=== PATIENT | male | born 1935 | race Caucasian/White ===

== ENCOUNTER → 2019-11-07 | Outpatient (CLI) | payer MEDICARE ==
[~2019-11-07] MED LIST: ASPI-515 PO; ATOR10TA9 PO; SOTA80TA PO
[2019-11-07 10:27] LABS: BASOPHILS # (AUTO) 0.06 x10^3/uL (0-0.1); BASOPHILS % (AUTO) 1 % (0-1); EOSINOPHILS # (AUTO) 0.07 x10^3/uL (0-0.4); EOSINOPHILS % (AUTO) 1 % (1-7); LYMPHOCYTES # (AUTO) 1.23 x10^3/uL (1-3.4); LYMPHOCYTES % (AUTO) 11 % (22-44); MD NO; MEAN CORPUSCULAR HEMOGLOBIN 27.3 pg (27.5-34.5); MEAN CORPUSCULAR HGB CONC 32.7 g/dL (33.2-36.2); MEAN CORPUSCULAR VOLUME 83.5 fL (81-97); MEAN PLATELET VOLUME 7.8 fL (7.4-10.4); MONOCYTES # (AUTO) 0.79 x10^3/uL (0.2-0.8); MONOCYTES % (AUTO) 7 % (2-9); NEUTROPHILS # (AUTO) 9.47 x10^3/uL (1.8-6.8); NEUTROPHILS % (AUTO) 82 % (42-75); PLATELET COUNT 202 x10^3/uL (130-400); RED BLOOD COUNT 5.29 x10^6/uL (4.38-5.82); RED CELL DISTRIBUTION WIDTH 15.3 % (9.4-14.8)
[2019-11-07 10:38] LABS: ALBUMIN 3.7 g/dL (3.4-5.0); ANION GAP 7 mmol/L (5-15); CALCIUM 8.9 mg/dL (8.5-10.1); CHLORIDE 107 mmol/L (98-107)
[2019-11-07 10:41] LABS: ALANINE AMINOTRANSFERASE 54 U/L (12-78); ALKALINE PHOSPHATASE 78 U/L (45-117); CREATININE 1.65 mg/dL (0.7-1.3); TOTAL PROTEIN 7.2 g/dL (6.4-8.2)
[2019-11-07 10:46] LABS: INTERNATIONAL NORMALIZED RATIO 1.08 (0.93-1.1); PROTHROMBIN TIME 11.3 Seconds (9.6-11.5)
== END | disposition home or self-care (01) ==
LOC: CFH 09:24
PROVIDERS: ATTEND Internal Medicine Cardiovascular Disease
DX: J44.9 Chronic obstructive pulmonary disease, unspecified (principal); I51.7 Cardiomegaly; J20.9 Acute bronchitis, unspecified; E78.2 Mixed hyperlipidemia; R06.02 Shortness of breath; Z95.5 Presence of coronary angioplasty implant and graft; Z95.810 Presence of automatic (implantable) cardiac defibrillator; Z79.82 Long term (current) use of aspirin; Z79.899 Other long term (current) drug therapy
CPT/HCPCS: 36415; 71046; 80053; 85025; 85610; 85730

== ENCOUNTER 2019-11-09 09:33 | Day surgery (SDC) | payer MEDICARE ==
[~2019-11-09] VITALS: Ht 167.6 cm; Wt 90.0 kg
[2019-11-09 09:58] VITALS: BP 135/94
[2019-11-09] MEDS ORDERED: SOTA80TA PO (10:02)
[2019-11-09] MEDS ORDERED: ATOR10TA9 PO (10:02)
[2019-11-09] MEDS ORDERED: ASPI-515 PO (10:02)
[2019-11-09] MEDS ORDERED: TICAGRELOR 90 MG TABLET ONE (11:39)
[2019-11-09] MEDS ORDERED: FENTANYL PF 100 MCG/2ML ONE (11:39)
[2019-11-09] MEDS ORDERED: MIDAZOLAM 1 MG/ML, 5ML ONE (11:39)
[2019-11-09] MEDS ORDERED: LIDOCAINE 2%, 20ML ONE (11:40)
[2019-11-09] MEDS ORDERED: HEPARIN 1,000 UNITS/ML, 10ML ONE (11:40)
[2019-11-09] MEDS ORDERED: NITROGLYCERIN 5 MG/ML, 10ML ONE (11:40)
[2019-11-09] MEDS ORDERED: BIVALIRUDIN 250 MG ONE (11:40)
[2019-11-09] MEDS ORDERED: SODIUM CHLORIDE 0.9% 1,000 ML IV SCH (12:57)
[2019-11-09] MEDS ORDERED: ONDANSETRON 2MG/ML, 2ML ONE (13:02)
== END 2019-11-09 16:57 | disposition home or self-care (01) ==
LOC: CACL 09:33
PROVIDERS: ATTEND Internal Medicine Cardiovascular Disease
DX: R06.09 Other forms of dyspnea (principal); I25.110 Atherosclerotic heart disease of native coronary artery with unstable angina pectoris; I47.2 Ventricular tachycardia; I25.2 Old myocardial infarction; I10 Essential (primary) hypertension; E78.2 Mixed hyperlipidemia; Z79.82 Long term (current) use of aspirin; Z79.899 Other long term (current) drug therapy; Z87.891 Personal history of nicotine dependence; Z88.5 Allergy status to narcotic agent; Z95.810 Presence of automatic (implantable) cardiac defibrillator; Z82.49 Family history of ischemic heart disease and other diseases of the circulatory system
CPT/HCPCS: 93459; 93567; 99156; 99157; C1760; C1769; C1887; C1894; J1644; J2250; J2405; J3010; Q9967; J0583

== ENCOUNTER 2019-12-25 09:49 | Day surgery (SDC) | payer MEDICARE ==
[~2019-12-25] VITALS: Ht 167.6 cm; Wt 83.2 kg
[2019-12-25 10:22] VITALS: BP 116/61
[2019-12-25] MEDS ORDERED: DIGO125T85 PO (10:47)
[2019-12-25] MEDS ORDERED: FURO-93 PO (10:47)
[2019-12-25] MEDS ORDERED: RIVA15TA PO (10:47)
[2019-12-25] MEDS ORDERED: PROPOFOL 10 MG/ML, 20ML ONE (12:44)
== END 2019-12-25 14:11 | disposition home or self-care (01) ==
LOC: CACL 09:49
PROVIDERS: ATTEND Internal Medicine Cardiovascular Disease
DX: I48.91 Unspecified atrial fibrillation (principal); I42.9 Cardiomyopathy, unspecified; I25.10 Atherosclerotic heart disease of native coronary artery without angina pectoris; I10 Essential (primary) hypertension; E78.5 Hyperlipidemia, unspecified; I25.2 Old myocardial infarction; Z79.01 Long term (current) use of anticoagulants; Z79.899 Other long term (current) drug therapy; Z88.5 Allergy status to narcotic agent; Z95.1 Presence of aortocoronary bypass graft; Z95.810 Presence of automatic (implantable) cardiac defibrillator
CPT/HCPCS: 92960; J2704

== ENCOUNTER 2020-04-03 09:02 | Day surgery (SDC) | payer MEDICARE ==
[~2020-04-03] VITALS: Ht 167.6 cm; Wt 82.0 kg
[~2020-04-03 09:02] MED LIST changes: +DIGO125T85 PO; +FURO-93 PO; +RIVA15TA PO
[2020-04-03 10:07] LABS: BASOPHILS # (AUTO) 0.04 x10^3/uL (0-0.1); BASOPHILS % (AUTO) 0 % (0-1); EOSINOPHILS # (AUTO) 0.13 x10^3/uL (0-0.4); EOSINOPHILS % (AUTO) 1 % (1-7); LYMPHOCYTES # (AUTO) 1.14 x10^3/uL (1-3.4); LYMPHOCYTES % (AUTO) 12 % (22-44); MD NO; MEAN CORPUSCULAR HEMOGLOBIN 27.1 pg (27.5-34.5); MEAN CORPUSCULAR HGB CONC 32.3 g/dL (33.2-36.2); MEAN CORPUSCULAR VOLUME 83.9 fL (81-97); MEAN PLATELET VOLUME 8.1 fL (7.4-10.4); MONOCYTES # (AUTO) 0.83 x10^3/uL (0.2-0.8); MONOCYTES % (AUTO) 9 % (2-9); NEUTROPHILS # (AUTO) 7.55 x10^3/uL (1.8-6.8); NEUTROPHILS % (AUTO) 78 % (42-75); PLATELET COUNT 190 x10^3/uL (130-400); RED BLOOD COUNT 4.72 x10^6/uL (4.38-5.82); RED CELL DISTRIBUTION WIDTH 15.6 % (9.4-14.8)
[2020-04-03 10:33] LABS: ANION GAP 7 mmol/L (5-15); CALCIUM 9.6 mg/dL (8.5-10.1); CHLORIDE 108 mmol/L (98-107)
[2020-04-03 10:34] LABS: CREATININE 1.82 mg/dL (0.7-1.3)
[2020-04-03] MEDS ORDERED: PROPOFOL 10 MG/ML, 20ML ONE (10:55)
== END 2020-04-03 12:48 | disposition home or self-care (01) ==
LOC: CACL 09:02
PROVIDERS: ATTEND Internal Medicine Clinical Cardiac Electrophysiology
DX: I48.19 Other persistent atrial fibrillation (principal); E78.5 Hyperlipidemia, unspecified; I42.8 Other cardiomyopathies; I25.2 Old myocardial infarction; Z79.01 Long term (current) use of anticoagulants; Z79.899 Other long term (current) drug therapy; Z88.5 Allergy status to narcotic agent; Z98.890 Other specified postprocedural states
CPT/HCPCS: 36415; 80048; 85025; 92960; J2704

== ENCOUNTER → 2020-07-16 | Outpatient (CLI) | payer MEDICARE ==
[~2020-07-16] MED LIST changes: +CARV3.1212 PO; +FURO-92 PO; +IRBE150T49 PO; +POTA20TA6 PO
== END | disposition home or self-care (01) ==
LOC: STAR 08:31
PROVIDERS: ATTEND Anesthesiology
DX: Z01.812 Encounter for preprocedural laboratory examination (principal); Z20.828 Contact with and (suspected) exposure to other viral communicable diseases
CPT/HCPCS: 36415; 87635

== ENCOUNTER 2020-07-19 06:03 | Day surgery (SDC) | payer MEDICARE ==
[~2020-07-19] VITALS: Ht 167.6 cm; Wt 82.7 kg
[2020-07-19] MEDS ORDERED: SODIUM CHLORIDE 0.9% 1,000 ML IV ONE (06:30)
[2020-07-19] MEDS ORDERED: POTA20TA6 PO (06:42)
[2020-07-19] MEDS ORDERED: PROPOFOL 10 MG/ML, 20ML ONE (07:31)
== END 2020-07-19 09:23 | disposition home or self-care (01) ==
LOC: CACL 06:03
PROVIDERS: ATTEND Internal Medicine Cardiovascular Disease
DX: I08.1 Rheumatic disorders of both mitral and tricuspid valves (principal); I13.0 Hypertensive heart and chronic kidney disease with heart failure and stage 1 through stage 4 chronic kidney disease, or unspecified chronic kidney disease; N18.9 Chronic kidney disease, unspecified; I50.9 Heart failure, unspecified; I25.5 Ischemic cardiomyopathy; I25.2 Old myocardial infarction; E78.5 Hyperlipidemia, unspecified; Z79.01 Long term (current) use of anticoagulants; Z79.899 Other long term (current) drug therapy; Z88.5 Allergy status to narcotic agent; Z88.8 Allergy status to other drugs, medicaments and biological substances; Z95.0 Presence of cardiac pacemaker; Z95.5 Presence of coronary angioplasty implant and graft
CPT/HCPCS: 93312; 93321; 93325; J2704

== ENCOUNTER → 2020-09-13 | Outpatient (CLI) | payer MEDICARE | END | disposition home or self-care (01) | LOC: CFH 14:06 | PROVIDERS: ATTEND Nurse Practitioner Family | DX: I08.8 Other rheumatic multiple valve diseases (principal); E78.5 Hyperlipidemia, unspecified; I25.2 Old myocardial infarction; I11.9 Hypertensive heart disease without heart failure; I25.5 Ischemic cardiomyopathy; Z95.1 Presence of aortocoronary bypass graft; Z79.01 Long term (current) use of anticoagulants | CPT/HCPCS: 93306 ==

== ENCOUNTER 2020-12-09 06:00 | Day surgery (SDC) | payer MEDICARE ==
[~2020-12-09] VITALS: Ht 167.6 cm; Wt 71.8 kg
[~2020-12-09 06:00] MED LIST changes: -ASPI-515 PO; +ASPI-963 PO; +FAMO20TA7 PO; +HYDR-3341 PO
[2020-12-09] MEDS ORDERED: FURO-92 PO (06:26)
[2020-12-09] MEDS ORDERED: AMIO200T42 PO (06:26)
[2020-12-09 06:41] VITALS: BP 114/69
[2020-12-09 07:10] LABS: ANION GAP 6 mmol/L (5-15); CALCIUM 8.9 mg/dL (8.5-10.1); CHLORIDE 101 mmol/L (98-107); CREATININE 2.35 mg/dL (0.7-1.3)
[2020-12-09] MEDS ORDERED: PROPOFOL 10 MG/ML, 20ML ONE (07:28)
== END 2020-12-09 09:14 | disposition home or self-care (01) ==
LOC: CACL 06:00
PROVIDERS: ATTEND Internal Medicine Cardiovascular Disease
DX: I48.91 Unspecified atrial fibrillation (principal); I34.0 Nonrheumatic mitral (valve) insufficiency; I25.5 Ischemic cardiomyopathy; I47.2 Ventricular tachycardia; I25.10 Atherosclerotic heart disease of native coronary artery without angina pectoris; I12.9 Hypertensive chronic kidney disease with stage 1 through stage 4 chronic kidney disease, or unspecified chronic kidney disease; N18.9 Chronic kidney disease, unspecified; Z79.01 Long term (current) use of anticoagulants; Z79.899 Other long term (current) drug therapy; Z87.891 Personal history of nicotine dependence; Z88.5 Allergy status to narcotic agent; Z88.8 Allergy status to other drugs, medicaments and biological substances; Z95.1 Presence of aortocoronary bypass graft
CPT/HCPCS: 36415; 80048; 92960; J2704